=== PATIENT | male | born 1940 | race African-American/Black ===

== ENCOUNTER 2017-12-31 17:08 | Emergency (ER) | payer OTHER ==
[2017-12-31 17:47] VITALS: BP 115/52; PULSE 64; TEMP 99.5; BMI 23.3
--- NOTE | 2017-12-31 19:43 | PDOC ---
History of Present Illness - History of Present Illness Initial Comments: 12/31/17 19:52 The patient is a 77M with PMHx of diabetes, hypertension, hyperlipidemia, and arthritis, comes to the emergency room with complaint of 3 days of LLE edema. Patient states his left foot has been swollen and painful to touch for 3 days now. Patient denies having experienced this before. He presents with 99.5 F temperature. Surgical Hx: denies Social Hx: denies EtOH, tobacco, and illicit drug use. PCP: Anahi Garcia Allergies: codeine <Eva Riggins - Last Filed: 12/31/17 21:24> <Viki Jett - Last Filed: 01/01/18 00:35> - General Chief Complaint: Edema Stated Complaint: PAIN Time Seen by Provider: 12/31/17 18:09 Past History <Eva Riggins - Last Filed: 12/31/17 21:24> - Past Medical History COPD: No Diabetes: Yes HTN: Yes Hypercholesterolemia: Yes - Surgical History Orthopedic Surgery: (rt knee sx) - Suicide/Smoking/Psychosocial Hx Smoking Status: No Smoking History: Never smoked Have you smoked in the past 12 months: No Number of Cigarettes Smoked Daily: 0 Information on smoking cessation initiated: No Hx Alcohol Use: No Drug/Substance Use Hx: No Substance Use Type: None <Viki Jett - Last Filed: 01/01/18 00:35> - Past Medical History Allergies/Adverse Reactions: Allergies Allergy/AdvReac Type Severity Reaction Status Date / Time codeine [Codeine] Allergy Verified 12/31/17 17:44 Home Medications: Ambulatory Orders Clindamycin [Cleocin -] 300 mg PO Q6HPO #28 capsule 01/01/18 Review of Systems - Review of Systems Comments:: 12/31/17 19:53 CONSTITUTIONAL: Present: fever Absent: no chills, no fatigue EYES: Absent: visual changes ENT: Absent: ear pain, no sore throat CARDIOVASCULAR: Absent: chest pain, no palpitations RESPIRATORY: Absent: cough, no SOB GI: Absent: abdominal pain, no nausea, no vomiting, no constipation, no diarrhea GENITOURINARY: Absent: dysuria, no frequency, no hematuria MUSCULOSKELETAL: Absent: back pain, no arthralgia, no myalgia SKIN: Present: left foot edema Absent: rash NEURO: Absent: headache <Eva Riggins - Last Filed: 12/31/17 21:24> *Physical Exam - Vital Signs Last Vital Signs Temp Pulse Resp BP Pulse Ox 99.5 F 64 20 115/52 98 12/31/17 17:44 12/31/17 17:44 12/31/17 17:44 12/31/17 17:44 12/31/17 17:44 - Physical Exam Comments: 12/31/17 19:55 GENERAL: +Febrile. Well-appearing, well-nourished. No apparent distress. HEENT: Normocephalic, atraumatic. PERRL, EOM intact. CARDIOVASCULAR: Normal S1, S2. Regular rate and rhythm. PULMONARY: Clear to auscultation bilaterally. ABDOMEN: Soft, non-distended, non-tender. EXTREMITIES: +Left foot, swollen on dorsal surface, warmth to touch up to [place]. Normal ROM in all four extremities. SKIN: Warm, dry. No rash NEUROLOGICAL: No focal neurological deficits. <Eva Riggins - Last Filed: 12/31/17 21:24> - Vital Signs Last Vital Signs Temp Pulse Resp BP Pulse Ox 99.5 F 64 20 115/52 98 12/31/17 17:44 12/31/17 17:44 12/31/17 17:44 12/31/17 17:44 12/31/17 17:44 <Viki Jett - Last Filed: 01/01/18 00:35> ED Treatment Course - RADIOLOGY Radiograph Interpretation: 12/31/17 21:24 Lower extremity US doppler Impression: No evidence of left lower extremity deep vein thrombosis. Reported by: Augie Beavers MD 12/31/17 21:11 <Eva Riggins - Last Filed: 12/31/17 21:24> - LABORATORY CBC & Chemistry Diagram: 12/31/17 Unknown 12/31/17 21:42 <Viki Jett - Last Filed: 01/01/18 00:35> *DC/Admit/Observation/Transfer <Eva Riggins - Last Filed: 12/31/17 21:24> <Viki Jett - Last Filed: 01/01/18 00:35> Diagnosis at time of Disposition: Pain and swelling of left lower leg Edema Qualifiers: Edema type: localized Qualified Code(s): R60.0 - Localized edema - Discharge Dispostion Disposition: HOME Condition at time of disposition: Stable - Prescriptions Prescriptions: Clindamycin [Cleocin -] 300 mg PO Q6HPO #28 capsule - Referrals Referrals: Anahi Whyte MD [Primary Care Provider] - - Patient Instructions Printed Discharge Instructions: DI for Cellulitis -- Adult Additional Instructions: 1. It is VERY important to warp picker your antibiotics at the [facility] pharmacy and take the medication as directed 2/ If you have worsening symptoms,please return to the emergency department 3. Remember to continue to take your regular medications which includes your diabetes and high blood pressure medications - Post Discharge Activity
[2017-12-31] MEDS ORDERED: PIPERACILLIN/TAZOB 3.375 GM 50 ML IVPB ONE (20:56)
[2017-12-31] MEDS ORDERED: PIPERACILLIN/TAZOB 3.375 GM 3.375 GM/50 ML BAG IVPB ONE (21:33)
[2017-12-31 22:22] LABS: INR 1.11 (0.82-1.09); PROTHROMBIN TIME (PATIENT) 12.5 SEC (9.98-11.88)
[2017-12-31 22:47] LABS: ALBUMIN 3.2 g/dl (3.4-5.0); ALK PHOS 87 U/L (45-117); ANION GAP 7 (8-16); BILIRUBIN,TOTAL 0.7 mg/dL (0.2-1.0); BLOOD UREA NITROGEN 24 mg/dL (7-18); CALCIUM 8.3 mg/dL (8.5-10.1); CHLORIDE 102 mmol/L (98-107); CO2 29 mmol/L (21-32); CREATININE 1.7 mg/dL (0.7-1.3); GLUCOSE,RANDOM 253 mg/dL (74-106); POTASSIUM 3.5 mmol/L (3.5-5.1); SGOT/AST 9 U/L (15-37); SGPT/ALT 16 U/L (12-78); SODIUM 138 mmol/L (136-145); TOT PROT 7.1 g/dl (6.4-8.2); URIC ACID 5.5 mg/dL (2.6-7.2)
[2017-12-31 22:57] LABS: BASO % 0.4 % (0-2.0); HEMOGLOBIN 13.1 GM/dL (11.7-16.9); LYMPH % 12.6 % (8-40); MCH 28.9 pg (25.7-33.7); MCHC 32.7 g/dl (32.0-35.9); MEAN CELL VOLUME 88.3 fl (80-96); MEAN PLT VOLUME 9.6 fl (7.5-11.1); PLATELET COUNT 179 K/MM3 (134-434); RBC 4.53 M/mm3 (4.00-5.60); RDW 14.1 % (11.9-15.9); WHITE BLOOD COUNT 11.8 K/mm3 (4.0-10.0)
== END 2018-01-01 01:45 | disposition home or self-care (01) ==
LOC: JER 17:08
DX: L03.116 Cellulitis of left lower limb (principal); R60.0 Localized edema; I10 Essential (primary) hypertension; E78.00 Pure hypercholesterolemia, unspecified; E11.9 Type 2 diabetes mellitus without complications
CPT/HCPCS: 36415; 80053; 84550; 85025; 85610; 87040; 93971-TC; 96365; 99284-25

== ENCOUNTER 2019-07-01 08:35 | Emergency (ER) | payer OTHER ==
[2019-07-01 08:40] VITALS: TEMP 98; BMI 28.1
[2019-07-01 09:31] LABS: BASO % 0.8 % (0-2.0); EOS % 0.9 % (0-4.5); HEMATOCRIT 33.9 % (35.4-49); HEMOGLOBIN 11.8 GM/dL (11.7-16.9); LYMPH % 16.7 % (8-40); MCH 29.8 pg (25.7-33.7); MCHC 34.9 g/dl (32.0-35.9); MEAN CELL VOLUME 85.5 fl (80-96); MEAN PLT VOLUME 8.1 fl (7.5-11.1); MONO % 9.5 % (3.8-10.2); NEUT % 72.1 % (42.8-82.8); PLATELET COUNT 294 K/MM3 (134-434); RBC 3.97 M/mm3 (4.00-5.60); RDW 13.6 % (11.9-15.9); WHITE BLOOD COUNT 10.3 K/mm3 (4.0-10.0)
[2019-07-01 09:56] LABS: ALBUMIN 3.2 g/dl (3.4-5.0); BILIRUBIN,TOTAL 0.4 mg/dL (0.2-1); BLOOD UREA NITROGEN 22.1 mg/dL (7-18); CALCIUM 8.9 mg/dL (8.5-10.1); CREATININE 1.7 mg/dL (0.55-1.3); POTASSIUM 3.3 mmol/L (3.5-5.1); TOT PROT 7.3 g/dl (6.4-8.2)
--- NOTE | 2019-07-01 10:25 | PDOC ---
History of Present Illness - General Chief Complaint: Edema Stated Complaint: LT HAND SWOLLEN Time Seen by Provider: 07/01/19 08:44 History Source: Patient Exam Limitations: No Limitations - History of Present Illness Initial Comments: 07/01/19 09:23 79-year-old male presents to ED with complaints of swelling to the left hand over the past 5 days with no improvement after elevation as recommended by his PCP. Patient denies injury to the hand bug bite to the area, recent hand infection, history of vascular disease, recent travel, recent surgery. Patient denies sensory changes at the fingertips but states is unable to bend them secondary to swelling and stiffness Timing/Duration: getting worse Severity: mild, moderate Associated Symptoms: reports: denies symptoms Past History - Travel Traveled outside of the country in the last 30 days: No Close contact w/someone who was outside of country & ill: No - Past Medical History Allergies/Adverse Reactions: Allergies Allergy/AdvReac Type Severity Reaction Status Date / Time codeine [Codeine] Allergy Verified 07/01/19 08:39 Home Medications: Ambulatory Orders Amlodipine Besylate [Norvasc -] 10 mg PO DAILY 01/01/18 Atenolol [Tenormin -] 100 mg PO DAILY 01/01/18 Hydralazine HCl 100 mg PO TID 01/01/18 Tamsulosin HCl [Flomax] 0.4 mg PO DAILY 01/01/18 Insulin Aspart [Novolog] 10 unit SQ AM 07/01/19 Insulin Glargine,Hum.rec.anlog [Basaglar Kwikpen U-100] 10 unit SQ AM 07/01/19 Losartan/Hydrochlorothiazide [Losartan-Hctz 100-25 mg Tab] 1 each PO DAILY 07/01 Methylprednisolone [Medrol Dose Mark] 4 mg PO ASDIR #21 tablet 07/01/19 Oxycodone HCl/Acetaminophen [Percocet 5-325 mg Tablet] 1 tab PO TID PRN #12 tablet MDD 3 07/01/19 COPD: No Diabetes: Yes HTN: Yes Hypercholesterolemia: Yes Other medical history: arthritis - Surgical History Orthopedic Surgery: (rt knee sx) - Immunization History Immunization Up to Date: Yes - Suicide/Smoking/Psychosocial Hx Smoking Status: No Smoking History: Never smoked Have you smoked in the past 12 months: No Number of Cigarettes Smoked Daily: 0 Information on smoking cessation initiated: No Hx Alcohol Use: No Drug/Substance Use Hx: No Substance Use Type: None Patient Lives Alone: No Lives with/in: spouse/SO Review of Systems - Review of Systems Able to Perform ROS?: No Is the patient limited Tajik proficient: No Constitutional: No: Symptoms Reported HEENTM: No: Symptoms Reported Respiratory: No: Symptoms reported Cardiac (ROS): Yes: Edema ABD/GI: No: Symptoms Reported Integumentary: No: Symptoms Reported Neurological: No: Symptoms reported Endocrine: No: Symptoms Reported Hematologic/Lymphatic: No: Symptoms Reported *Physical Exam - Vital Signs Last Vital Signs Temp Pulse Resp BP Pulse Ox 98 F 78 18 168/58 L 99 07/01/19 08:37 07/01/19 08:37 07/01/19 08:37 07/01/19 08:37 07/01/19 08:37 - Physical Exam General Appearance: Yes: Nourished, Appropriately Dressed. No: Apparent Distress Comments:: 07/01/19 10:34 2+ left radial Extremity: positive: Normal Capillary Refill. negative: Normal Inspection ( noted 3+ pitting edema to the left hand from the wrist extending to fingertips. ), Normal Range of Motion, Tender Integumentary: positive: Normal Color, Warm, Moist Neurologic: positive: Motor Strength 5/5 (ambulatory, 5 + hand grasp) ED Treatment Course - LABORATORY CBC & Chemistry Diagram: 07/01/19 09:19 07/01/19 09:19 - RADIOLOGY Radiology Studies Ordered: Category Date Time Status DUPLEX VASCUL US-1 ARM [US] Stat Ultrasound 07/01/19 08:45 Ordered Medical Decision Making - Medical Decision Making 07/01/19 09:36 CC: left hand swelling x 5 days worsening despite elevation, No other complaints Exam: 3 + pitting edema to left hand , no increased warmth or erythema, 2 + left radial pulse. 2 sec cap refill Plan: labs and duplex 07/01/19 10:55 Deep venous thrombosis in the left upper extremity including jugular and subclavian vein. 07/01/19 10:56 Laboratory Tests 05/13/16 07/18/16 07/18/16 08:30 11:15 11:15 WBC Hgb 10.2 L D 12.1 D Hct Neutrophils % ESR Sodium Potassium Chloride Carbon Dioxide Anion Gap BUN Creatinine 1.8 H Random Glucose Total Bilirubin AST ALT C-Reactive Protein Albumin 12/31/17 12/31/17 07/01/19 21:42 Unknown 09:19 WBC Hgb 13.1 Hct Neutrophils % ESR Sodium Potassium Chloride Carbon Dioxide Anion Gap BUN Creatinine 1.7 H Random Glucose Total Bilirubin AST ALT C-Reactive Protein 3.3 H Albumin 07/01/19 07/01/19 07/01/19 09:19 09:19 09:19 WBC 10.3 H Hgb 11.8 Hct 33.9 L D Neutrophils % 72.1 ESR 69 H Sodium 140 Potassium 3.3 L Chloride 105 Carbon Dioxide 28 Anion Gap 7 L BUN 22.1 H Creatinine 1.7 H Random Glucose 57 L Total Bilirubin 0.4 AST 12 L ALT 12 L C-Reactive Protein Albumin 3.2 L Patient given orange juice 07/01/19 12:22 Laboratory Tests 07/01/19 09:19 Uric Acid 6.9 X-ray negative for acute pathology. Patient be discharged home with a Medrol pack along with since patient states has taken it before without reaction unlike codeine which he develops itchy rash *DC/Admit/Observation/Transfer Diagnosis at time of Disposition: Edema, Inflammatory arthritis - Discharge Dispostion Disposition: HOME Condition at time of disposition: Good - Prescriptions Prescriptions: Methylprednisolone [Medrol Dose Mark] 4 mg PO ASDIR #21 tablet Oxycodone HCl/Acetaminophen [Percocet 5-325 mg Tablet] 1 tab PO TID PRN #12 tablet MDD 3 PRN Reason: Pain - Referrals Referrals: Sid James MD [Staff Physician] - - Patient Instructions Printed Discharge Instructions: DI for Arthritis Additional Instructions: I recommend taking the Medrol pack as prescribed until completed. Please take Percocet as needed for discomfort. I also recommend following up with orthopedist for management. If you develop any redness increased temperature or worsening discomfort please call the emergency room at [phone] and ask for me Nuris Hernandez - Post Discharge Activity
--- NOTE | 2019-07-01 11:08 | PDOC ---
*Physical Exam - Vital Signs Last Vital Signs Temp Pulse Resp BP Pulse Ox 98 F 78 18 168/58 L 99 07/01/19 08:37 07/01/19 08:37 07/01/19 08:37 07/01/19 08:37 07/01/19 08:37 - Physical Exam Comments: 07/01/19 11:06 wrist/hand swelling with 2+ pulses, brisk cap refill. no focal bony ttp/ deformity, ROM normal but slightly limited 2/2 swelling. no warmth/joing effusion ED Treatment Course - LABORATORY CBC & Chemistry Diagram: 07/01/19 09:19 07/01/19 09:19 - ADDITIONAL ORDERS Additional order review: Laboratory Results 07/01/19 07/01/19 09:19 09:19 Sodium 140 Potassium 3.3 L Chloride 105 Carbon Dioxide 28 Anion Gap 7 L BUN 22.1 H Creatinine 1.7 H Est GFR (CKD-EPI)AfAm 42.88 Est GFR (CKD-EPI)NonAf 37.00 Random Glucose 57 L Calcium 8.9 Total Bilirubin 0.4 AST 12 L ALT 12 L Alkaline Phosphatase 86 C-Reactive Protein 3.3 H Total Protein 7.3 Albumin 3.2 L 07/01/19 09:19 RBC 3.97 L MCV 85.5 MCHC 34.9 RDW 13.6 MPV 8.1 D Neutrophils % 72.1 Lymphocytes % 16.7 D Monocytes % 9.5 Eosinophils % 0.9 D Basophils % 0.8 Medical Decision Making - Medical Decision Making 07/01/19 11:07 79-year-old male presents with atraumatic wrist/hand swelling without systemic symptoms of fevers or chills. Labs as noted with elevated ESR and CRP, white count within normal limits, afebrile Neurovascularly intact with 2+ distal pulses and no DVT on Doppler ultrasound Wrist x-ray pending, we'll send uric acid Presentation of atraumatic left wrist/hand swelling consistent with inflammatory process, less likely infectious versus vascular. Trial of NSAIDs and steroids Orthosis/hand referral Understands strict return criteria *DC/Admit/Observation/Transfer Diagnosis at time of Disposition: Edema, Inflammatory arthritis - Discharge Dispostion Disposition: HOME Condition at time of disposition: Good - Prescriptions Prescriptions: Methylprednisolone [Medrol Dose Mark] 4 mg PO ASDIR #21 tablet Oxycodone HCl/Acetaminophen [Percocet 5-325 mg Tablet] 1 tab PO TID PRN #12 tablet MDD 3 PRN Reason: Pain - Referrals Referrals: Sid James MD [Staff Physician] - - Patient Instructions Printed Discharge Instructions: DI for Arthritis Additional Instructions: I recommend taking the Medrol pack as prescribed until completed. Please take Percocet as needed for discomfort. I also recommend following up with orthopedist for management. If you develop any redness increased temperature or worsening discomfort please call the emergency room at [phone] and ask for me Nuris Hernandez - Post Discharge Activity
[2019-07-01 11:26] LABS: URIC ACID 6.9 mg/dL (2.6-7.2)
[2019-07-01 13:31] VITALS: BP 166/71; PULSE 92
== END 2019-07-01 13:20 | disposition home or self-care (01) ==
LOC: JER 08:35
DX: M13.842 Other specified arthritis, left hand (principal); I10 Essential (primary) hypertension; E78.00 Pure hypercholesterolemia, unspecified; E11.9 Type 2 diabetes mellitus without complications; Z79.4 Long term (current) use of insulin
CPT/HCPCS: 36415; 73130-TC-LT-FY; 80053; 84550; 85025; 85651; 86140; 93971; 99283-25

== ENCOUNTER 2019-08-20 12:41 | Emergency (ER) | payer OTHER ==
[2019-08-20 12:52] VITALS: BP 150/65; PULSE 69; TEMP 98.6; BMI 28.5
--- NOTE | 2019-08-20 13:58 | PDOC ---
History of Present Illness - General Chief Complaint: Edema Stated Complaint: L HAND SWOLLEN Time Seen by Provider: 08/20/19 13:11 Past History - Travel Traveled outside of the country in the last 30 days: No Close contact w/someone who was outside of country & ill: No - Past Medical History Allergies/Adverse Reactions: Allergies Allergy/AdvReac Type Severity Reaction Status Date / Time codeine [Codeine] Allergy Verified 08/20/19 12:48 Home Medications: Ambulatory Orders Amlodipine Besylate [Norvasc -] 10 mg PO DAILY 01/01/18 Atenolol [Tenormin -] 100 mg PO DAILY 01/01/18 Hydralazine HCl 100 mg PO TID 01/01/18 Tamsulosin HCl [Flomax] 0.4 mg PO DAILY 01/01/18 Insulin Aspart [Novolog] 10 unit SQ AM 07/01/19 Insulin Glargine,Hum.rec.anlog [Basaglar Kwikpen U-100] 10 unit SQ AM 07/01/19 Losartan/Hydrochlorothiazide [Losartan-Hctz 100-25 mg Tab] 1 each PO DAILY 07/01 predniSONE [Deltasone -] 40 mg PO DAILY #8 tablet 08/20/19 COPD: No Diabetes: Yes HTN: Yes Hypercholesterolemia: Yes - Surgical History Orthopedic Surgery: (rt knee sx) - Immunization History Immunization Up to Date: Yes - Suicide/Smoking/Psychosocial Hx Smoking Status: No Smoking History: Never smoked Have you smoked in the past 12 months: No Number of Cigarettes Smoked Daily: 0 Hx Alcohol Use: No Drug/Substance Use Hx: No Substance Use Type: None Review of Systems - Review of Systems Able to Perform ROS?: Yes Comments:: 08/20/19 13:58 CONSTITUTIONAL: Absent: fever, chills, diaphoresis, generalized weakness, malaise, loss of appetite HEENT: Absent: rhinorrhea, nasal congestion, throat pain, throat swelling, difficulty swallowing, mouth swelling, ear pain, eye pain, visual Changes CARDIOVASCULAR: Absent: chest pain, loss of consciousness, palpitations, irregular heart rate RESPIRATORY: Absent: cough, shortness of breath, dyspnea with exertion, orthopnea, wheezing, stridor, hemoptysis GASTROINTESTINAL: Absent: abdominal pain, abdominal distension, nausea, vomiting, diarrhea, constipation, melena, hematochezia GENITOURINARY: Absent: dysuria, frequency, urgency, hesitancy, hematuria, flank pain, genital pain MUSCULOSKELETAL: Present: L hand swellingAbsent: myalgia, arthralgia, joint swelling SKIN: Absent: rash, itching, pallor HEMATOLOGIC/IMMUNOLOGIC: Absent: easy bleeding, easy bruising, lymphadenopathy, frequent infections ENDOCRINE: Absent: unexplained weight gain, unexplained weight loss, heat intolerance, cold intolerance NEUROLOGIC: Absent: headache, focal weakness or paresthesias, dizziness, unsteady gait, seizure, mental status changes, bladder or bowel incontinence PSYCHIATRIC: Absent: anxiety, depression, suicidal or homicidal ideation, hallucinations. Is the patient limited Romanian proficient: No *Physical Exam - Vital Signs Last Vital Signs Temp Pulse Resp BP Pulse Ox 98.6 F 69 16 150/65 99 08/20/19 12:51 08/20/19 12:51 08/20/19 12:51 08/20/19 12:51 08/20/19 12:51 - Physical Exam Comments: 08/20/19 14:00 GENERAL: Well developed, well nourished. Awake and alert. No acute distress. HEENT: Normocephalic, atraumatic. PERRLA, EOMI. No conjunctival pallor. Sclera are non- icteric. Moist mucous membranes. Oropharynx is clear. NECK: Supple. Full ROM. No JVD. Carotid pulses 2+ and symmetric, without bruits. No thyromegaly. No lymphadenopathy. CARDIOVASCULAR: Regular rate and rhythm. No murmurs, rubs, or gallops. Distal pulses are 2+ and symmetric. PULMONARY: No evidence of respiratory distress. Lungs clear to auscultation bilaterally. No wheezing, rales or rhonchi. ABDOMINAL: Soft. Non-tender. Non-distended. No rebound or guarding. No organomegaly. Normoactive bowel sounds. MUSCULOSKELETAL Normal range of motion at all joints. No bony deformities or tenderness. No CVA tenderness. EXTREMITIES: No cyanosis. No clubbing. No edema. No calf tenderness. SKIN: L hand is edematous. No overlying cellulitis, or obvious trauma. Warm and dry. Normal capillary refill. No rashes. No jaundice. NEUROLOGICAL: Alert, awake, appropriate. Cranial nerves 2-12 intact. No deficits to light touch and temperature in face, upper extremities and lower extremities. No motor deficits in the in face, upper extremities and lower extremities. Normoreflexic in the upper and lower extremities. Normal speech. Toes are down- going bilaterally. Gait is normal without ataxia. PSYCHIATRIC: Cooperative. Good eye contact. Appropriate mood and affect. Medical Decision Making - Medical Decision Making 08/20/19 14:02 The patient is an 79 y/o M with PMH of IDDM, HTN, arthritis, presents to the ER with L hand swelling. He states that a similar episode of swelling happened one month ago and he was evaluated in our ER for his symptoms. He states that everything was fine at that time and he was diagnosed with arthritis. He was given a medrol dose pack and his symptoms completely resolved. He notes that the same swelling started three days ago. Denies trauma, falling, cellulitis, bug bites, recent travel, and numbness and tingling to his affected extremity. A/P: L hand pain On exam L hand 3+ edema, pt unable to make a fist d/t the swelling, but is able to move all his fingers. Chart reviewed. Uric acid level, DVT study and hand x-ray were normal one month ago. No overlying infection, no obvious trauma. Will treat as an arthritis. Pt instructed to f/u with his PCP for further arthritis testing. I discussed the physical exam findings, ancillary test results and final diagnoses with the patient. I answered all of the patient's questions. The patient was satisfied with the care received and felt comfortable with the discharge plan and treatment plan. The Patient agrees to follow up with the primary care physician/specialist within 24-72 hours. Return precautions were given. *DC/Admit/Observation/Transfer Diagnosis at time of Disposition: Inflammatory arthritis Edema Qualifiers: Edema type: unspecified Qualified Code(s): R60.9 - Edema, unspecified - Discharge Dispostion Disposition: HOME Condition at time of disposition: Stable Decision to Admit order: No - Referrals Referrals: Willy Wu MD [Primary Care Provider] - - Patient Instructions Printed Discharge Instructions: DI for Arthritis Additional Instructions: You were evaluated for your arthritis today You received your first dose of steroids today in the ER Start taking the steroids your were prescribed tomorrow Keep the hand elevated when resting. Follow up with your primary care doctor this week for further treatment options Return to the ER for any new or worsening symptoms including difficulty breathing, chest pain or if you have any changes in your symptoms - Post Discharge Activity Forms/Work/School Notes: Back to Work
[2019-08-20] MEDS ORDERED: predniSONE 20 MG TABLET (UD) PO ONE (14:27)
[2019-08-20] MEDS ORDERED: predniSONE 20 MG TABLET (UD) ONE (14:30)
== END 2019-08-20 14:36 | disposition home or self-care (01) ==
LOC: JER 12:41
DX: M13.842 Other specified arthritis, left hand (principal); I10 Essential (primary) hypertension; E11.9 Type 2 diabetes mellitus without complications; Z79.4 Long term (current) use of insulin; E78.00 Pure hypercholesterolemia, unspecified; Z88.8 Allergy status to other drugs, medicaments and biological substances
CPT/HCPCS: 99281-25

== ENCOUNTER 2019-10-15 12:09 | Emergency (ER) | payer OTHER ==
[2019-10-15 12:14] VITALS: BMI 28.1
[2019-10-15] MEDS ORDERED: ACETAMINOPHEN 500 MG TABLET (FP) PO ONE (13:18)
[2019-10-15] MEDS ORDERED: ASPIRIN 81 MG CHEWABLE TABLETS PO ONE (13:21)
--- NOTE | 2019-10-15 13:26 | PDOC ---
History of Present Illness - General Chief Complaint: Pain Stated Complaint: NECK PAIN Time Seen by Provider: 10/15/19 12:51 - History of Present Illness Initial Comments: 10/15/19 13:19 79-year-old male with a past medical history of hypertension and diabetes presents for right-sided neck and shoulder pain which began last night. Pain is worse with movement no systemic symptoms pain radiates from his neck to his right shoulder Past History - Past Medical History Allergies/Adverse Reactions: Allergies Allergy/AdvReac Type Severity Reaction Status Date / Time codeine [Codeine] Allergy Verified 10/15/19 12:14 Home Medications: Ambulatory Orders Amlodipine Besylate [Norvasc -] 10 mg PO DAILY 01/01/18 Atenolol [Tenormin -] 100 mg PO DAILY 01/01/18 Hydralazine HCl 100 mg PO TID 01/01/18 Tamsulosin HCl [Flomax] 0.4 mg PO DAILY 01/01/18 Insulin Aspart [Novolog] 10 unit SQ AM 07/01/19 Insulin Glargine,Hum.rec.anlog [Basaglar Kwikpen U-100] 10 unit SQ AM 07/01/19 Losartan/Hydrochlorothiazide [Losartan-Hctz 100-25 mg Tab] 1 each PO DAILY 07/01 predniSONE [Deltasone -] 40 mg PO DAILY #8 tablet 08/20/19 COPD: No Diabetes: Yes HTN: Yes Hypercholesterolemia: Yes - Surgical History Orthopedic Surgery: (rt knee sx) - Immunization History Immunization Up to Date: Yes - Psycho Social/Smoking Cessation Hx Smoking Status: No Smoking History: Never smoked Have you smoked in the past 12 months: No Number of Cigarettes Smoked Daily: 0 Hx Alcohol Use: No Drug/Substance Use Hx: No Substance Use Type: None Review of Systems - Review of Systems Musculoskeletal: Yes: Joint Pain, Neck Pain *Physical Exam - Vital Signs Last Vital Signs Temp Pulse Resp BP Pulse Ox 99.1 F 67 18 126/49 L 98 10/15/19 12:10 10/15/19 12:10 10/15/19 12:10 10/15/19 12:10 10/15/19 12:10 - Physical Exam Comments: 10/15/19 13:19 GENERAL: The patient is awake, alert, and fully oriented, in no acute distress. HEAD: Normal with no signs of trauma. EYES: sclera anicteric, conjunctiva clear. ENT: Ears normal NECK: Normal range of motion LUNGS: Breath sounds equal, clear to auscultation bilaterally. No wheezes, and no crackles. HEART: S1 and S2 without murmur, rub or gallop. ABDOMEN: Soft, nontender, normoactive bowel sounds. No guarding, no rebound. No masses. EXTREMITIES: Normal range of motion, no edema. No clubbing or cyanosis. No cords, erythema, or tenderness. NEUROLOGICAL: Cranial nerves II through XII grossly intact. Normal speech, normal gait. PSYCH: Normal mood, normal affect. SKIN: Warm, Dry, normal turgor, no rashes or lesions noted. Cervical spine skin color and temperature normal. There is significant tenderness about the right cervical para musculature and right trapezium. Pain is exacerbated with motion elevation of the shoulder no gross sensorimotor deficits neurovascular intact. He has palpable tenderness about the right pectoral muscle as well. Medical Decision Making - Medical Decision Making 10/15/19 13:20 79-year-old male with cardiac risk factors very reproducible chest pain. Pain began last night is reproduced with movement and he is also tender I do not believe this is cardiogenic however given the complaint of chest pain and radiation of symptoms I will transfer him to the main ER for further work-up Discharge - Discharge Information Problems reviewed: Yes Clinical Impression/Diagnosis: Chest pain - Follow up/Referral Referrals: Willy Wu MD [Primary Care Provider] - - Patient Discharge Instructions - Post Discharge Activity
[2019-10-15] MEDS ORDERED: ACETAMINOPHEN 500 MG TABLET (FP) ONE (13:33)
--- NOTE | 2019-10-15 14:02 | PDOC ---
History of Present Illness - General Chief Complaint: Pain Stated Complaint: NECK PAIN Time Seen by Provider: 10/15/19 12:51 - History of Present Illness Initial Comments: HPI: 79yo M with PMH of HTN, HLD, DM complaining of constant R. sided neck/chest/ shoulder pain. Patient states he had this pain starting last night. He was laying in bed and woke up, feeling the "sharp" pain rated 10/10. Has not taken anything at home for it. The pain worsens with certain movements and to palpation. Exertion does not make his pain worse. Denies recent fall, trauma, or weight lifting. No associated nausea, vomiting, or diaphoresis. Does not think he has ever seen a infection control preventionist. Denies personal or family history of AL. Patient is a lifetime non-smoker. No hemoptysis, no recent surgical history, no recent immobilization, no hormone use, no history of DVT or PE. Denies fever or chills. PCP: Dr. Wu ROS: Constitutional: no fever, no chills HEENT: no throat pain, no dysphagia Cardiovascular: no palpitations, no leg swelling Respiratory: no cough, no shortness of breath Gastrointestinal: no abdominal pain, no nausea Genitourinary: no dysuria, no hematuria Musculoskeletal: no myalgia, +shoulder pain Skin: no rash, no itching Neurologic: no syncope, no weakness PE: General: Awake, alert, and fully oriented, in no acute distress Head: No signs of trauma Eyes: EOMI, sclera anicteric ENT: Moist mucus membranes Neck: Normal ROM, supple Lungs: Lungs clear, Normal breath sounds Cardio: Regular rhythm, S1 and S2 present Abdomen: Soft, nontender Extremities: Normal range of motion, Distal pulses present, Reproducible pain upon palpation of R. shoulder/neck/and pectoral area without overlying rash or lesion. No calf tenderness SKIN: Warm, Dry, normal turgor Neurologic: Cranial nerves II through XII grossly intact. Normal speech ED Course/MDM: 79yo M with PMH of HTN, HLD, DM complaining of R. sided neck/chest/shoulder pain. DDX including but not limited to MSK/arthritis, ACS, PE, PNA, anemia, metabolic derangement While pain is consistent with MSK as it is reproducible, patient is 79 and has cardiac risk factors. Decision made to send one troponin- as pain has been present since last night, the high sensitivity troponin should detect if patient 's pain is of cardiac origin. Labs, E[facility] 10/15/19 14:02 EKG, rate 58, [id number], with LBBB (also present on 03/08/13) CXR, as read by radiology: "2 views of the chest reveal a weak inspiration with clear lungs, prominent mediastinum and sharp angles. The soft tissues are intact. There are degenerative changes with wedging. Since 10/13/2014, there is no change of an adverse nature. Impression: No acute chest pathology. " Shoulder Xray, as read by radiology: "2 views of the right shoulder reveal degenerative changes with no sign of fracture or subluxation and no sign of blastic or lytic findings. There are degenerative changes. An acute process is not seen. If symptoms persist, further imaging may be of help " Patient feeling better after recieving medications, pain is now 6/10. CBC WBC 15.1 K/mm3 (4.0-10.0) H 10/15/19 13:36 RBC 4.36 M/mm3 (4.00-5.60) 10/15/19 13:36 Hgb 12.8 GM/dL (11.7-16.9) 10/15/19 13:36 Hct 39.1 % (35.4-49) D 10/15/19 13:36 MCV 89.6 fl (80-96) 10/15/19 13:36 MCH 29.3 pg (25.7-33.7) 10/15/19 13:36 MCHC 32.7 g/dl (32.0-35.9) 10/15/19 13:36 RDW 14.8 % (11.9-15.9) 10/15/19 13:36 Plt Count 212 K/MM3 (134-434) D 10/15/19 13:36 MPV 9.2 fl (7.5-11.1) D 10/15/19 13:36 Absolute Neuts (auto) 11.9 K/mm3 (1.5-8.0) H 10/15/19 13:36 Neutrophils % 79.2 % (42.8-82.8) 10/15/19 13:36 Lymphocytes % 10.1 % (8-40) D 10/15/19 13:36 Monocytes % 9.9 % (3.8-10.2) 10/15/19 13:36 Eosinophils % 0.1 % (0-4.5) D 10/15/19 13:36 Basophils % 0.7 % (0-2.0) 10/15/19 13:36 Nucleated RBC % 0 % (0-0) 10/15/19 13:36 Leukocytosis No anemia CMP Sodium 138 mmol/L (136-145) 10/15/19 13:36 Potassium 3.6 mmol/L (3.5-5.1) 10/15/19 13:36 Chloride 102 mmol/L (98-107) 10/15/19 13:36 Carbon Dioxide 29 mmol/L (21-32) 10/15/19 13:36 Anion Gap 8 MMOL/L (8-16) 10/15/19 13:36 BUN 27.4 mg/dL (7-18) H 10/15/19 13:36 Creatinine 1.7 mg/dL (0.55-1.3) H 10/15/19 13:36 Est GFR (CKD-EPI)AfAm 42.88 10/15/19 13:36 Est GFR (CKD-EPI)NonAf 37.00 10/15/19 13:36 Random Glucose 126 mg/dL (74-106) H 10/15/19 13:36 Calcium 9.6 mg/dL (8.5-10.1) 10/15/19 13:36 Magnesium 2.3 mg/dL (1.8-2.4) 10/15/19 13:36 Total Bilirubin 0.8 mg/dL (0.2-1) 10/15/19 13:36 AST 14 U/L (15-37) L 10/15/19 13:36 ALT 15 U/L (13-61) 10/15/19 13:36 Alkaline Phosphatase 88 U/L (45-117) 10/15/19 13:36 Creatine Kinase 152 U/L (26-308) 10/15/19 13:36 Creatine Kinase Index 0.8 % (0.0-5.0) 10/15/19 13:36 CK-MB (CK-2) 1.3 ng/mL (0.5-3.6) 10/15/19 13:36 Troponin I < 0.02 ng/ml (0.00-0.05) 10/15/19 13:36 Total Protein 7.1 g/dl (6.4-8.2) 10/15/19 13:36 Albumin 3.2 g/dl (3.4-5.0) L 10/15/19 13:36 Electrolytes unremarkable Cr is elevated, but at baseline No transamiitis Tpn undetectable I have low suspicion for acute cardiac pathology as patient's pain is reproducible. He is without PE risk factors, except for age. Called patient's primary care office, , and was able to get him an earlier appointment ( at 2pm) by speaking with Marisol. Tylenol prescription called into pharmacy Recommended lidocaine patches which are available [id number] Return precautions Discharged 10/15/19 16:13 Past History - Past Medical History Allergies/Adverse Reactions: Allergies Allergy/AdvReac Type Severity Reaction Status Date / Time codeine [Codeine] Allergy Verified 10/15/19 12:14 Home Medications: Ambulatory Orders Amlodipine Besylate [Norvasc -] 10 mg PO DAILY 01/01/18 Atenolol [Tenormin -] 100 mg PO DAILY 01/01/18 Hydralazine HCl 100 mg PO TID 01/01/18 Tamsulosin HCl [Flomax] 0.4 mg PO DAILY 01/01/18 Insulin Aspart [Novolog] 10 unit SQ AM 07/01/19 Insulin Glargine,Hum.rec.anlog [Basaglar Kwikpen U-100] 10 unit SQ AM 07/01/19 Losartan/Hydrochlorothiazide [Losartan-Hctz 100-25 mg Tab] 1 each PO DAILY 07/01 predniSONE [Deltasone -] 40 mg PO DAILY #8 tablet 08/20/19 COPD: No Diabetes: Yes HTN: Yes Hypercholesterolemia: Yes - Surgical History Orthopedic Surgery: (rt knee sx) - Immunization History Immunization Up to Date: Yes - Psycho Social/Smoking Cessation Hx Smoking Status: No Smoking History: Never smoked Have you smoked in the past 12 months: No Number of Cigarettes Smoked Daily: 0 Hx Alcohol Use: No Drug/Substance Use Hx: No Substance Use Type: None *Physical Exam - Vital Signs Last Vital Signs Temp Pulse Resp BP Pulse Ox 99.1 F 67 18 126/49 L 98 10/15/19 12:10 10/15/19 12:10 10/15/19 12:10 10/15/19 12:10 10/15/19 12:10 ED Treatment Course - LABORATORY CBC & Chemistry Diagram: 10/15/19 13:36 10/15/19 13:36 - Medications Given in the ED: ED Medications Discontinued Medications Generic Name Dose Route Start Last Admin Trade Name Brenda PRN Reason Stop Dose Admin Acetaminophen 1,000 mg 10/15/19 13:18 10/15/19 13:43 Tylenol - PO 10/15/19 13:19 1,000 mg ONCE ONE Administration Discharge - Discharge Information Problems reviewed: Yes Clinical Impression/Diagnosis: Chest pain Qualifiers: Chest pain type: unspecified Qualified Code(s): R07.9 - Chest pain, unspecified Shoulder pain Qualifiers: Chronicity: acute Laterality: right Qualified Code(s): M25.511 - Pain in right shoulder Condition: Improved Disposition: HOME - Follow up/Referral Referrals: Willy Wu MD [Primary Care Provider] - CallBack Reminder: Please Call to Follow up - Patient Discharge Instructions Patient Printed Discharge Instructions: DI for Joint Pain Additional Instructions: You came into the emergency department for chest pain. We performed blood work, an EKG, and an Xray which were within normal limits. You can take [id number] tylenol for pain. Follow the instructions on the medication bottle. We spoke with your clinic and were able to get you an earlier appointment. Follow-up with your primary care physician on the at 2pm to discuss this ED visit and to further evaluate your symptoms. Your workup is not complete until you do so. Call for emergency medicine services or go to the emergency room right away if you have symptoms of a heart attack, including: Chest pain, which may feel like a crushing weight A sense of fullness, squeezing, or pressure in the chest Rapid, irregular heartbeat Pain, tingling or numbness in the left shoulder and arm, the neck or jaw, or the right arm Sweating Nausea or vomiting Lightheadedness, weakness, or fainting Shortness of breath If you think you have an emergency, call for medical help right away. - Post Discharge Activity
[2019-10-15] MEDS ORDERED: ASPIRIN 81 MG CHEWABLE TABLETS ONE (14:03)
[2019-10-15 14:05] LABS: BASO % 0.7 % (0-2.0); EOS % 0.1 % (0-4.5); HEMATOCRIT 39.1 % (35.4-49); HEMOGLOBIN 12.8 GM/dL (11.7-16.9); LYMPH % 10.1 % (8-40); MCH 29.3 pg (25.7-33.7); MCHC 32.7 g/dl (32.0-35.9); MEAN CELL VOLUME 89.6 fl (80-96); MEAN PLT VOLUME 9.2 fl (7.5-11.1); MONO % 9.9 % (3.8-10.2); NEUT % 79.2 % (42.8-82.8); PLATELET COUNT 212 K/MM3 (134-434); RBC 4.36 M/mm3 (4.00-5.60); RDW 14.8 % (11.9-15.9); WHITE BLOOD COUNT 15.1 K/mm3 (4.0-10.0)
[2019-10-15 14:21] LABS: INR 1.03 (0.83-1.09); PROTHROMBIN TIME (PATIENT) 12.2 SEC (9.7-13.0)
[2019-10-15 14:24] LABS: ACTIVATED PTT 33.6 SECONDS (25.2-36.5)
[2019-10-15 14:32] LABS: ALBUMIN 3.2 g/dl (3.4-5.0); ALK PHOS 88 U/L (45-117); ANION GAP 8 MMOL/L (8-16); BILIRUBIN,TOTAL 0.8 mg/dL (0.2-1); BLOOD UREA NITROGEN 27.4 mg/dL (7-18); CALCIUM 9.6 mg/dL (8.5-10.1); CHLORIDE 102 mmol/L (98-107); CO2 29 mmol/L (21-32); CREATININE 1.7 mg/dL (0.55-1.3); GLUCOSE,RANDOM 126 mg/dL (74-106); MAGNESIUM 2.3 mg/dL (1.8-2.4); POTASSIUM 3.6 mmol/L (3.5-5.1); SGOT/AST 14 U/L (15-37); SGPT/ALT 15 U/L (13-61); SODIUM 138 mmol/L (136-145); TOT PROT 7.1 g/dl (6.4-8.2)
--- NOTE | 2019-10-15 14:32 | PDOC ---
Attending Attestation - Resident Resident Name: Bina Marie - ED Attending Attestation I have performed the following: I have examined & evaluated the patient, The case was reviewed & discussed with the resident, I agree w/resident's findings & plan, Exceptions are as noted - HPI HPI: 10/15/19 18:26 Mr. Crabtree is a marco antonio 79 yo M who presents with a complaint of right neck and shoulder pain Pt has a h/o HTN, DM and is well controlled on po medications (compliant) Pt states he began to have constant R sided neck/chest/shoulder pain. His symptoms began while he was laying in bed Pain is described as "sharp", rated 10/10, located in the neck, scapula, chest Pt has not taken any po pain medications for this pain He notices that his pain worsens when he moves his shoulder, or his upper back is palpated Has not taken anything at home for it. No chest pain or shortness of breath with exertion The pain actually worsens with certain movements and with palpation. No associated nausea, vomiting, or diaphoresis. Does not think he has ever seen a ordering machine operator. Patient is a lifetime non-smoker. No hemoptysis, no recent surgical history, no recent immobilization, no history of DVT or PE. Denies fever or chills. PCP: Dr. Wu 10/15/19 18:28 - Physicial Exam PE: 10/15/19 14:14 PE: General: Awake, alert, and fully oriented, in no acute distress Head: No signs of trauma Eyes: EOMI, sclera anicteric ENT: Moist mucus membranes Neck: Normal ROM, supple, no midline tenderness to palpation Lungs: Lungs clear, Normal breath sounds Cardio: Regular rhythm, S1 and S2 present Abdomen: Soft, nontender Extremities: Normal range of motion, Distal pulses present, Right scapular tenderness, right sides neck tenderness Right pectoral tenderness to palpation Pain not elicited with deep breath SKIN: No rash Neurologic: Cranial nerves II through XII grossly intact. Normal speech - Medical Decision Making 10/15/19 14:14 EKG: Sinus rhythm, bradycardic rate of 58 bpm, LBBB (seen on EKG from 2013) Differential includes cardiac ischemia, pe, asthma exacerbation, pneumonia, pneumothorax, pleural effusion, costochondritis, pericarditis, GERD. We will do: Labs EKG Chest x-ray Reassess 10/15/19 18:55 Laboratory Tests 10/15/19 10/15/19 13:36 13:36 WBC 15.1 H Hgb 12.8 Hct 39.1 D Plt Count 212 D BUN 27.4 H Creatinine 1.7 H Creatine Kinase 152 Creatine Kinase Index 0.8 CK-MB (CK-2) 1.3 Troponin I < 0.02 Pt has had constant pain since last night, negative trop Pt pain is reproducible with palpation of the scapula and neck Pt has no neurological complaints of weakness or numbness Pt has no uri symptoms, no cough CXR reveals no pneumothroax, pleural effusion No rub to suggest pericarditis Discharge - Discharge Information Problems reviewed: Yes Clinical Impression/Diagnosis: Chest pain Qualifiers: Chest pain type: unspecified Qualified Code(s): R07.9 - Chest pain, unspecified Shoulder pain Qualifiers: Chronicity: acute Laterality: right Qualified Code(s): M25.511 - Pain in right shoulder Condition: Improved Disposition: HOME - Admission No - Follow up/Referral Referrals: Willy Wu MD [Primary Care Provider] - CallBack Reminder: Please Call to Follow up - Patient Discharge Instructions Patient Printed Discharge Instructions: DI for Joint Pain Additional Instructions: You came into the emergency department for chest pain. We performed blood work, an EKG, and an Xray which were within normal limits. You can take [id number] tylenol for pain. Follow the instructions on the medication bottle. We spoke with your clinic and were able to get you an earlier appointment. Follow-up with your primary care physician on the at 2pm to discuss this ED visit and to further evaluate your symptoms. Your workup is not complete until you do so. Call for emergency medicine services or go to the emergency room right away if you have symptoms of a heart attack, including: Chest pain, which may feel like a crushing weight A sense of fullness, squeezing, or pressure in the chest Rapid, irregular heartbeat Pain, tingling or numbness in the left shoulder and arm, the neck or jaw, or the right arm Sweating Nausea or vomiting Lightheadedness, weakness, or fainting Shortness of breath If you think you have an emergency, call for medical help right away. - Post Discharge Activity
[2019-10-15 15:49] VITALS: BP 127/53; PULSE 58; TEMP 98.2
--- NOTE | 2019-10-16 12:47 | EKG ---
Test Reason : Blood Pressure : / mmHG Vent. Rate : 058 BPM Atrial Rate : 058 BPM P-R Int : 164 ms QRS Dur : 146 ms QT Int : 458 ms P-R-T Axes : 052 014 181 degrees QTc Int : 449 ms POOR DATA QUALITY, INTERPRETATION MAY BE ADVERSELY AFFECTED SINUS BRADYCARDIA POSSIBLE LEFT ATRIAL ENLARGEMENT LEFT BUNDLE BRANCH BLOCK ABNORMAL ECG WHEN COMPARED WITH ECG OF 08-MAR-2013 19:02, T WAVE INVERSION LESS EVIDENT IN INFERIOR LEADS Confirmed by EAGLE KING MD ([id number]) on 10/16/2019 12:47:10 PM Referred By: Confirmed By:EAGLE KING MD
== END 2019-10-15 16:02 | disposition home or self-care (01) ==
LOC: JER 12:09 → JERFT 12:09 → JER 16:02
DX: R07.9 Chest pain, unspecified (principal); M25.511 Pain in right shoulder; D72.829 Elevated white blood cell count, unspecified; I10 Essential (primary) hypertension; E78.00 Pure hypercholesterolemia, unspecified; E11.9 Type 2 diabetes mellitus without complications; Z79.84 Long term (current) use of oral hypoglycemic drugs; Z88.5 Allergy status to narcotic agent
CPT/HCPCS: 36415; 71046-TC-FY; 73030-TC-RT-FY; 80053; 82550; 82553; 83735; 84484; 85025; 85610; 85730; 93005; 93010; 99285-25